=== PATIENT | male | born 1945 | race Hispanic/Latino ===

== ENCOUNTER → 2020-05-02 | Day surgery (SDC) | payer OTHER ==
[2020-04-29 10:24] LABS: BASOPHILS # (AUTO) 0.1 (0.0-0.1); BASOPHILS % 0.5 % (0.0-1.0); EOSINOPHILS # (AUTO) 0.1 (0.0-0.4); EOSINOPHILS % 1.2 % (0.0-6.0); HEMATOCRIT 42.6 % (38.2-49.6); HEMOGLOBIN 14.4 g/dL (14.0-18.0); LYMPHOCYTES % 19.5 % (18.0-39.1); MEAN CORPUSCULAR HEMOGLOBIN 30.1 pg (28-32); MEAN CORPUSCULAR HGB CONC 33.8 g/dL (31-35); MEAN CORPUSCULAR VOLUME 89.1 fL (81-99); MONOCYTES # (AUTO) 0.9 (0.2-0.8); MONOCYTES % 9.1 % (4.4-11.3); NEUTROPHILS # (AUTO) 7.1 (2.1-6.9); NEUTROPHILS % 68.8 % (38.7-80.0); PLATELET COUNT 230 x10e3/uL (140-360); RED BLOOD COUNT 4.78 x10e6/uL (4.3-5.7); RED CELL DISTRIBUTION WIDTH 13.8 % (11.7-14.4)
[2020-04-29 10:49] LABS: ANION GAP 12.9 mmol/L (8-16); BLOOD UREA NITROGEN 21 mg/dL (7-26); BUN/CREATININE RATIO 23 (6-25); CALCIUM 9.3 mg/dL (8.4-10.2); CARBON DIOXIDE 24 mmol/L (22-29); CHLORIDE 104 mmol/L (98-107); CREATININE, SERUM 0.93 mg/dL (0.72-1.25); EST GLOMERULAR FILTRATION RATE > 60 ML/MIN (60-); GLUCOSE 99 mg/dL (74-118); POTASSIUM 3.9 mmol/L (3.5-5.1); SODIUM 137 mmol/L (136-145)
[~2020-05-02] MED LIST: BALANCED SALT SOLN (OPTH) 15 ML BTL IO ONE; BUPIVACAINE HC 0.75% PF 10ML VIAL INJ ONE; CYCLOPENTOLATE HCL 2% OPTH SOLN 2 ML BTL OP ONE; EPINEPHRINE HCL 1:1000 1ML 1 MG/ML AMP ONE; FENTANYL CITRATE/PF 100MCG/2 ML INJ ONE; GATIFLOXACIN(OPTH) 5 ML LIQD ONE; LATANOPROST2.5 ML OU; LIDOCAINE 2% /EPINEPHRINE 20 ML SDV INJ ONE; LIDOCAINE HCL-PF 4% 40 MG/1 ML 5ML AMP ONE; LOSARTAN POTASS25 MG PO; METFORMIN HCL500 MG PO; MIDAZOLAM HCL 2 MG/2 ML VIAL ONE; PHENYLEPHRINE HCL 2 ML DROPS ONE; PILOCARPINE HCL(OPTH) 15 ML LIQD ONE; POVIDONE IODINE 5% (OPTH) 30 ML BTL ONE; TIMOLOL OU; TOBRAMYCIN/DEXAMETHASONE(OPTH) 3.5 GM TUBE ONE
[2020-05-02 08:25] VITALS: BP 152/90
== END | disposition home or self-care (01) ==
LOC: OR 05:23
PROVIDERS: ATTEND Ophthalmology
DX: H25.12 Age-related nuclear cataract, left eye (principal); E11.9 Type 2 diabetes mellitus without complications; I10 Essential (primary) hypertension; F17.210 Nicotine dependence, cigarettes, uncomplicated; Z01.810 Encounter for preprocedural cardiovascular examination; Z01.812 Encounter for preprocedural laboratory examination; Z20.822 Contact with and (suspected) exposure to COVID-19; Z79.84 Long term (current) use of oral hypoglycemic drugs
CPT/HCPCS: 36415; 80048; 82948; 85025; 93005; J0171; J2001; J2250; J3010; U0002; V2787

== ENCOUNTER 2021-06-11 14:59 | Inpatient (IN) | payer OTHER ==
[~2021-06-11] VITALS: Ht 180.3 cm; Wt 108.0 kg
[~2021-06-11 14:59] MED LIST changes: -BALANCED SALT SOLN (OPTH) 15 ML BTL IO ONE; -BUPIVACAINE HC 0.75% PF 10ML VIAL INJ ONE; -CYCLOPENTOLATE HCL 2% OPTH SOLN 2 ML BTL OP ONE; -EPINEPHRINE HCL 1:1000 1ML 1 MG/ML AMP ONE; -FENTANYL CITRATE/PF 100MCG/2 ML INJ ONE; -GATIFLOXACIN(OPTH) 5 ML LIQD ONE; -LIDOCAINE 2% /EPINEPHRINE 20 ML SDV INJ ONE; -LIDOCAINE HCL-PF 4% 40 MG/1 ML 5ML AMP ONE; -MIDAZOLAM HCL 2 MG/2 ML VIAL ONE; -PHENYLEPHRINE HCL 2 ML DROPS ONE; -PILOCARPINE HCL(OPTH) 15 ML LIQD ONE; -POVIDONE IODINE 5% (OPTH) 30 ML BTL ONE; -TOBRAMYCIN/DEXAMETHASONE(OPTH) 3.5 GM TUBE ONE
[2021-06-11] MEDS ORDERED: SODIUM CHLORIDE 0.9% 1000ML 1,000 ML IV STA (15:18)
[2021-06-11 15:30] LABS: BASOPHILS % 0.3 % (0.0-1.0); HEMATOCRIT 40.4 % (38.2-49.6); HEMOGLOBIN 13.7 g/dL (14.0-18.0); LYMPHOCYTES # (AUTO) 0.7 (1.0-3.2); LYMPHOCYTES % 9.5 % (18.0-39.1); MEAN CORPUSCULAR HGB CONC 33.9 g/dL (31-35); MEAN CORPUSCULAR VOLUME 88.4 fL (81-99); MONOCYTES # (AUTO) 0.3 (0.2-0.8); MONOCYTES % 3.4 % (4.4-11.3); NEUTROPHILS # (AUTO) 6.5 (2.1-6.9); NEUTROPHILS % 85.5 % (38.7-80.0); PLATELET COUNT 139 x10e3/uL (140-360); RED BLOOD COUNT 4.57 x10e6/uL (4.3-5.7); RED CELL DISTRIBUTION WIDTH 14.2 % (11.7-14.4)
[2021-06-11] MEDS ORDERED: ACETAMINOPHEN 325 MG TAB PO ONE (15:30)
[2021-06-11 15:33] LABS: INR 1.1; PROTHROMBIN TIME 15.2 seconds (11.9-14.5)
[2021-06-11 15:34] LABS: PARTIAL THROMBOPLASTIN TIME 37.4 seconds (23.8-35.5)
[2021-06-11 15:41] LABS: ALBUMIN 3.3 g/dL (3.5-5.0); ALBUMIN/GLOBULIN RATIO 0.8 (0.8-2.0); ANION GAP 15.6 mmol/L (8-16); CALCIUM 8.7 mg/dL (8.4-10.2); CREATININE, SERUM 1.56 mg/dL (0.72-1.25); MAGNESIUM 1.7 MG/DL (1.3-2.1); POTASSIUM 3.6 mmol/L (3.5-5.1)
[2021-06-11 15:58] LABS: B-TYPE NATRIURETIC PEPTIDE2 73.7 pg/mL (0-100)
[2021-06-11 16:00] LABS: CREATINE KINASE MB 3.4 ng/mL (0-5.0); THYROID STIMULATING HORMONE 3.806 uIU/mL (0.350-4.940)
[2021-06-11] MEDS: IPRATROPIUM BROMIDE 0.02% 2.5 ML NEB NEB SCH ×2 (17:00→21:00)
[2021-06-11] MEDS: ALBUTEROL SULF 0.083% NEB SOLN 3 ML NEB NEB SCH ×3 (17:00→23:45)
[2021-06-11 17:06] LABS: LYMPHOCYTES % (MANUAL) 2 % (19-48); MONOCYTES % (MANUAL) 15 % (3.4-9.0); NEUTROPHILS % (MANUAL) 79 % (40-74); PLATELET ESTIMATE SLIGHTLY DECREASED; PLATELET MORPHOLOGY COMMENT FEW LARGE; RBC MORPHOLOGY COMMENT NORMAL
[2021-06-11] MEDS ORDERED: DEXTROSE 50% SYRINGE 50 ML IV PRN (17:15)
[2021-06-11 17:22] LABS: CLARITY,URINE SL CLOUDY (CLEAR); COLOR,URINE STRAW (YELLOW); KETONES,URINE 1+ (NEGATIVE); LEUKOCYTE ESTERASE ,URINE NEGATIVE (NEGATIVE); NITRITE,URINE NEGATIVE (NEGATIVE); PROTEIN,URINE DIPSTICK 2+ (NEGATIVE); URINE UROBILINOGEN 1 mg/dL (0.2 - 1)
[2021-06-11 17:23] LABS: AMPHETAMINES SCREEN,URINE NEGATIVE (NEGATIVE); PHENCYCLIDINE SCREEN,URINE NEGATIVE (NEGATIVE)
[2021-06-11 17:24] LABS: BENZODIAZEPINES SCREEN,URINE NEGATIVE (NEGATIVE)
[2021-06-11 17:34] LABS: AMORPHOUS SEDIMENT,URINE FEW (FEW); BACTERIA,URINE MODERATE /HPF; EPITHELIAL CELLS,URINE RARE /LPF; RBC,URINE 0-5 /HPF (0-5); WBC,URINE (MAN) 0-5 /HPF (0-5)
[2021-06-11] MEDS: SODIUM CHLORIDE 0.9% 1000ML 1,000 ML IV SCH (17:44)
[2021-06-11 19:45] VITALS: BP 172/76
[2021-06-11] MEDS ORDERED: ONDANSETRON HCL INJ 2MG/ML 2ML 2 MG/ML VIAL IV PRN (20:45)
[2021-06-11] MEDS: LOSARTAN POTASSIUM 25 MG TAB PO SCH (20:55)
[2021-06-11] MEDS: ACETAMINOPHEN 325 MG TAB PO PRN (20:55)
[2021-06-11] MEDS ORDERED: INSULIN LISPRO 100 UNIT/1 ML 3ML VIAL SQ SCH (21:00)
[2021-06-12] VITALS (8 sets, daily range): BP systolic 113–155; BP diastolic 57–90
[2021-06-12] MEDS: ALBUTEROL SULF 0.083% NEB SOLN 3 ML NEB NEB SCH ×2 (03:50→07:08)
[2021-06-12] MEDS: IPRATROPIUM BROMIDE 0.02% 2.5 ML NEB NEB SCH ×2 (03:50→07:08)
[2021-06-12] MEDS: SODIUM CHLORIDE 0.9% 1000ML 1,000 ML IV SCH (05:42)
[2021-06-12 06:10] LABS: BASOPHILS # (AUTO) 0.1 (0.0-0.1); BASOPHILS % 0.6 % (0.0-1.0); HEMATOCRIT 36.5 % (38.2-49.6); HEMOGLOBIN 12.2 g/dL (14.0-18.0); LYMPHOCYTES # (AUTO) 0.9 (1.0-3.2); MEAN CORPUSCULAR HEMOGLOBIN 29.8 pg (28-32); MEAN CORPUSCULAR HGB CONC 33.4 g/dL (31-35); MEAN CORPUSCULAR VOLUME 89.2 fL (81-99); MONOCYTES # (AUTO) 0.3 (0.2-0.8); MONOCYTES % 3.6 % (4.4-11.3); NEUTROPHILS # (AUTO) 6.4 (2.1-6.9); NEUTROPHILS % 82.5 % (38.7-80.0); PLATELET COUNT 121 x10e3/uL (140-360); RED BLOOD COUNT 4.09 x10e6/uL (4.3-5.7); RED CELL DISTRIBUTION WIDTH 14.3 % (11.7-14.4)
[2021-06-12 06:46] LABS: ALBUMIN 2.6 g/dL (3.5-5.0); ALBUMIN/GLOBULIN RATIO 0.7 (0.8-2.0); ANION GAP 13.6 mmol/L (8-16); CALCIUM 7.7 mg/dL (8.4-10.2); CREATININE, SERUM 1.21 mg/dL (0.72-1.25); POTASSIUM 3.6 mmol/L (3.5-5.1)
[2021-06-12 07:03] LABS: CREATINE KINASE MB 2.4 ng/mL (0-5.0)
[2021-06-12] MEDS: LOSARTAN POTASSIUM 25 MG TAB PO SCH ×2 (08:51→17:39)
[2021-06-12] MEDS: ACETAMINOPHEN 325 MG TAB PO PRN (08:53)
[2021-06-12] MEDS ORDERED: ALBUTEROL/IPRATROPIUM 3 ML NEB NEB PRN (09:45)
[2021-06-12] MEDS ORDERED: ONDANSETRON HCL INJ 2MG/ML 2ML 2 MG/ML VIAL IV PRN (09:45)
[2021-06-12] MEDS ORDERED: DEXTROSE 50% SYRINGE 50 ML IV PRN (09:45)
[2021-06-12] MEDS ORDERED: HYDRALAZINE HCL 20 MG/ML VIAL IV PRN (09:45)
[2021-06-12 10:06] LABS: BAND NEUTROPHILS % (MANUAL) 11 %; LYMPHOCYTES % (MANUAL) 10 % (19-48); MONOCYTES % (MANUAL) 1 % (3.4-9.0); NEUTROPHILS % (MANUAL) 77 % (40-74); PLATELET ESTIMATE SLIGHTLY DECREASED
[2021-06-12 10:07] LABS: PLATELET MORPHOLOGY COMMENT FEW LARGE; RBC MORPHOLOGY COMMENT NORMAL
[2021-06-12] MEDS ORDERED: NIFEDIPINE CR 30 MG TAB PO ONE (10:15)
[2021-06-12] MEDS: METOPROLOL TARTRATE 50 MG TAB PO SCH ×2 (10:15→17:40)
[2021-06-12] MEDS: ALPRAZOLAM 0.25 MG TAB PO PRN ×2 (10:32→21:17)
[2021-06-12] MEDS: INSULIN LISPRO 100 UNIT/1 ML 3ML VIAL SQ SCH ×3 (12:30→21:00)
[2021-06-12] MEDS: ENOXAPARIN INJ 80 MG/0.8 ML SYR SC SCH ×2 (12:30→21:16)
[2021-06-12] MEDS: ALBUTEROL/IPRATROPIUM 3 ML NEB NEB SCH ×2 (13:00→19:28)
[2021-06-12] MEDS ORDERED: IOPAMIDOL 300MG/ML 100 ML INFUS..BTL IV ONE (13:31)
[2021-06-12] MEDS ORDERED: IOPAMIDOL 370 MG/ML 100 ML INFUS..BTL INJ ONE (13:32)
[2021-06-12 15:44] LABS: CREATINE KINASE MB 4.2 ng/mL (0-5.0)
[2021-06-12] MEDS: METOPROLOL TARTRATE INJ 1 MG/ML VIAL IV PRN (20:46)
[2021-06-13] VITALS (7 sets, daily range): BP systolic 104–142; BP diastolic 62–90
[2021-06-13] MEDS: ALBUTEROL/IPRATROPIUM 3 ML NEB NEB SCH ×4 (00:32→19:00)
[2021-06-13 05:06] LABS: BASOPHILS % 0.4 % (0.0-1.0); EOSINOPHILS % 0.1 % (0.0-6.0); HEMATOCRIT 38.7 % (38.2-49.6); HEMOGLOBIN 12.9 g/dL (14.0-18.0); LYMPHOCYTES % 19.2 % (18.0-39.1); MEAN CORPUSCULAR HEMOGLOBIN 30.1 pg (28-32); MEAN CORPUSCULAR HGB CONC 33.3 g/dL (31-35); MEAN CORPUSCULAR VOLUME 90.2 fL (81-99); MONOCYTES # (AUTO) 0.5 (0.2-0.8); MONOCYTES % 4.7 % (4.4-11.3); NEUTROPHILS # (AUTO) 7.7 (2.1-6.9); NEUTROPHILS % 74.6 % (38.7-80.0); PLATELET COUNT 111 x10e3/uL (140-360); RED BLOOD COUNT 4.29 x10e6/uL (4.3-5.7); RED CELL DISTRIBUTION WIDTH 14.5 % (11.7-14.4)
[2021-06-13 05:34] LABS: ANION GAP 13.8 mmol/L (8-16); CALCIUM 7.8 mg/dL (8.4-10.2); CREATININE, SERUM 1.04 mg/dL (0.72-1.25); MAGNESIUM 1.9 MG/DL (1.3-2.1); PHOSPHORUS 1.6 MG/DL (2.3-4.7); POTASSIUM 3.8 mmol/L (3.5-5.1)
[2021-06-13] MEDS: METOPROLOL TARTRATE INJ 1 MG/ML VIAL IV PRN (05:40)
[2021-06-13 05:54] LABS: THYROID STIMULATING HORMONE 3.592 uIU/mL (0.350-4.940)
[2021-06-13] MEDS: ALPRAZOLAM 0.25 MG TAB PO PRN (07:28)
[2021-06-13] MEDS: INSULIN LISPRO 100 UNIT/1 ML 3ML VIAL SQ SCH ×4 (07:30→21:00)
[2021-06-13 08:28] LABS: BAND NEUTROPHILS % (MANUAL) 3 %; LYMPHOCYTES % (MANUAL) 10 % (19-48); MONOCYTES % (MANUAL) 3 % (3.4-9.0); NEUTROPHILS % (MANUAL) 84 % (40-74)
[2021-06-13 08:29] LABS: PLATELET ESTIMATE SLIGHTLY DECREASED; PLATELET MORPHOLOGY COMMENT FEW GIANT; RBC MORPHOLOGY COMMENT NORMAL
[2021-06-13] MEDS ORDERED: NIFEDIPINE CR 30 MG TAB PO SCH (09:00)
[2021-06-13] MEDS: LOSARTAN POTASSIUM 25 MG TAB PO SCH ×2 (10:06→16:10)
[2021-06-13] MEDS: ENOXAPARIN INJ 80 MG/0.8 ML SYR SC SCH ×2 (10:14→21:00)
[2021-06-13] MEDS: METOPROLOL TARTRATE 50 MG TAB PO SCH ×3 (10:15→21:05)
[2021-06-13] MEDS ORDERED: DILTIAZEM HCL 60 MG TAB PO ONE (10:30)
[2021-06-13] MEDS ORDERED: FUROSEMIDE INJ 10 MG/ML 2 ML VIAL IV ONE (13:00)
[2021-06-13] MEDS: ACETAMINOPHEN 325 MG TAB PO PRN ×2 (13:00→18:46)
[2021-06-13 13:15] LABS: ABG PCO2 26 mmHg (35-45); ABG PH 7.46 (7.35-7.45); ABG PO2 58 mmHg (80-105)
[2021-06-13 13:16] LABS: ABG HCO3 19 mmol/L (22-26); ABG TCO2 19
[2021-06-13 14:35] LABS: ALBUMIN 2.5 g/dL (3.5-5.0); BILIRUBIN,DIRECT 0.5 mg/dL (0.0-0.5)
[2021-06-13 15:01] LABS: FREE THYROXINE INDEX 1.6672 (1.4-3.8); THYROID STIMULATING HORMONE 4.577 uIU/mL (0.350-4.940)
[2021-06-13] MEDS: DILTIAZEM HCL 60 MG TAB PO SCH (16:48)
[2021-06-13] MEDS: BUDESONIDE 0.25 MG/2 ML NEB NEB SCH (19:00)
[2021-06-14] VITALS (7 sets, daily range): BP systolic 80–126; BP diastolic 57–81
[2021-06-14] MEDS: ALBUTEROL/IPRATROPIUM 3 ML NEB NEB SCH ×4 (00:27→19:00)
[2021-06-14] MEDS: METOPROLOL TARTRATE 50 MG TAB PO SCH ×4 (06:00→18:00)
[2021-06-14] MEDS: BUDESONIDE 0.25 MG/2 ML NEB NEB SCH ×2 (07:00→19:00)
[2021-06-14] MEDS: INSULIN LISPRO 100 UNIT/1 ML 3ML VIAL SQ SCH ×4 (07:30→20:04)
[2021-06-14] MEDS: DILTIAZEM HCL 60 MG TAB PO SCH ×2 (08:44→16:30)
[2021-06-14] MEDS: ENOXAPARIN INJ 80 MG/0.8 ML SYR SC SCH ×2 (08:44→20:04)
[2021-06-14] MEDS: LOSARTAN POTASSIUM 25 MG TAB PO SCH ×2 (08:44→17:00)
[2021-06-14] MEDS: HYDROCODONE/APAP 5MG-325MG TAB PO PRN ×2 (17:17→22:01)
[2021-06-14] MEDS: ACETAMINOPHEN 325 MG TAB PO PRN (20:06)
[2021-06-15] VITALS (8 sets, daily range): BP systolic 92–140; BP diastolic 47–68
[2021-06-15] MEDS: ALBUTEROL/IPRATROPIUM 3 ML NEB NEB SCH ×4 (01:00→19:00)
[2021-06-15] MEDS: METOPROLOL TARTRATE 50 MG TAB PO SCH ×4 (04:44→18:00)
[2021-06-15] MEDS: BUDESONIDE 0.25 MG/2 ML NEB NEB SCH ×2 (06:15→19:00)
[2021-06-15 06:49] LABS: BASOPHILS # (AUTO) 0.1 (0.0-0.1); BASOPHILS % 0.5 % (0.0-1.0); EOSINOPHILS # (AUTO) 0.1 (0.0-0.4); EOSINOPHILS % 0.8 % (0.0-6.0); HEMOGLOBIN 12.6 g/dL (14.0-18.0); LYMPHOCYTES # (AUTO) 1.7 (1.0-3.2); LYMPHOCYTES % 13.2 % (18.0-39.1); MEAN CORPUSCULAR HEMOGLOBIN 29.7 pg (28-32); MEAN CORPUSCULAR HGB CONC 33.2 g/dL (31-35); MEAN CORPUSCULAR VOLUME 89.6 fL (81-99); MONOCYTES # (AUTO) 0.7 (0.2-0.8); MONOCYTES % 5.3 % (4.4-11.3); NEUTROPHILS # (AUTO) 10.1 (2.1-6.9); NEUTROPHILS % 77.1 % (38.7-80.0); PLATELET COUNT 181 x10e3/uL (140-360); RED BLOOD COUNT 4.24 x10e6/uL (4.3-5.7); RED CELL DISTRIBUTION WIDTH 14.4 % (11.7-14.4)
[2021-06-15 07:10] LABS: ALBUMIN 2.3 g/dL (3.5-5.0); ALBUMIN/GLOBULIN RATIO 0.6 (0.8-2.0); ANION GAP 11.3 mmol/L (8-16); CREATININE, SERUM 1.1 mg/dL (0.72-1.25); POTASSIUM 3.3 mmol/L (3.5-5.1)
[2021-06-15] MEDS: INSULIN LISPRO 100 UNIT/1 ML 3ML VIAL SQ SCH ×4 (07:30→20:13)
[2021-06-15] MEDS: DILTIAZEM HCL 60 MG TAB PO SCH ×2 (07:30→16:30)
[2021-06-15] MEDS: ACETAMINOPHEN 325 MG TAB PO PRN (08:12)
[2021-06-15] MEDS: ENOXAPARIN INJ 80 MG/0.8 ML SYR SC SCH ×2 (09:00→20:13)
[2021-06-15] MEDS: LOSARTAN POTASSIUM 25 MG TAB PO SCH ×2 (09:00→16:44)
[2021-06-15] MEDS ORDERED: FUROSEMIDE INJ 10 MG/ML 2 ML VIAL IV ONE (14:30)
[2021-06-15] MEDS: HYDROCODONE/APAP 5MG-325MG TAB PO PRN (20:10)
[2021-06-16] VITALS (7 sets, daily range): BP systolic 113–127; BP diastolic 71–89
[2021-06-16] MEDS: HYDROCODONE/APAP 5MG-325MG TAB PO PRN ×3 (00:49→17:53)
[2021-06-16] MEDS: METOPROLOL TARTRATE 50 MG TAB PO SCH ×4 (05:43→17:53)
[2021-06-16] MEDS: ACETAMINOPHEN 325 MG TAB PO PRN (05:53)
[2021-06-16] MEDS: ALBUTEROL/IPRATROPIUM 3 ML NEB NEB SCH ×4 (07:00→19:00)
[2021-06-16] MEDS: BUDESONIDE 0.25 MG/2 ML NEB NEB SCH ×2 (07:00→19:00)
[2021-06-16] MEDS: INSULIN LISPRO 100 UNIT/1 ML 3ML VIAL SQ SCH ×4 (07:30→20:50)
[2021-06-16] MEDS: DILTIAZEM HCL 60 MG TAB PO SCH ×2 (08:46→17:52)
[2021-06-16] MEDS: ENOXAPARIN INJ 80 MG/0.8 ML SYR SC SCH ×2 (08:47→20:49)
[2021-06-16] MEDS: LOSARTAN POTASSIUM 25 MG TAB PO SCH ×2 (08:47→17:53)
[2021-06-16] MEDS ORDERED: POTASSIUM CHLORIDE 10MEQ EA PO ONE (10:00)
[2021-06-17] VITALS (7 sets, daily range): BP systolic 93–131; BP diastolic 62–75
[2021-06-17] MEDS: METOPROLOL TARTRATE 50 MG TAB PO SCH ×4 (00:05→17:52)
[2021-06-17] MEDS: ACETAMINOPHEN 325 MG TAB PO PRN (00:06)
[2021-06-17] MEDS: ALBUTEROL/IPRATROPIUM 3 ML NEB NEB SCH ×2 (01:00→07:00)
[2021-06-17 06:15] LABS: BASOPHILS # (AUTO) 0.1 (0.0-0.1); BASOPHILS % 0.5 % (0.0-1.0); EOSINOPHILS # (AUTO) 0.2 (0.0-0.4); EOSINOPHILS % 1.1 % (0.0-6.0); HEMATOCRIT 33.8 % (38.2-49.6); HEMOGLOBIN 11.3 g/dL (14.0-18.0); LYMPHOCYTES # (AUTO) 2.4 (1.0-3.2); MEAN CORPUSCULAR HEMOGLOBIN 30.1 pg (28-32); MEAN CORPUSCULAR HGB CONC 33.4 g/dL (31-35); MEAN CORPUSCULAR VOLUME 90.1 fL (81-99); MONOCYTES # (AUTO) 0.7 (0.2-0.8); NEUTROPHILS # (AUTO) 9.4 (2.1-6.9); NEUTROPHILS % 70.1 % (38.7-80.0); PLATELET COUNT 289 x10e3/uL (140-360); RED BLOOD COUNT 3.75 x10e6/uL (4.3-5.7); RED CELL DISTRIBUTION WIDTH 14.4 % (11.7-14.4)
[2021-06-17 06:41] LABS: ANION GAP 8.5 mmol/L (8-16); CALCIUM 7.6 mg/dL (8.4-10.2); CREATININE, SERUM 1.15 mg/dL (0.72-1.25); POTASSIUM 3.5 mmol/L (3.5-5.1)
[2021-06-17] MEDS: BUDESONIDE 0.25 MG/2 ML NEB NEB SCH ×2 (07:00→19:00)
[2021-06-17 07:01] LABS: MAGNESIUM 1.8 MG/DL (1.3-2.1)
[2021-06-17] MEDS: DILTIAZEM HCL 60 MG TAB PO SCH ×2 (07:30→16:30)
[2021-06-17] MEDS: INSULIN LISPRO 100 UNIT/1 ML 3ML VIAL SQ SCH ×4 (07:30→21:00)
[2021-06-17] MEDS: LOSARTAN POTASSIUM 25 MG TAB PO SCH ×2 (08:39→17:00)
[2021-06-17] MEDS: ENOXAPARIN INJ 80 MG/0.8 ML SYR SC SCH ×2 (08:39→21:00)
[2021-06-17 09:48] LABS: PHOSPHORUS 2.8 MG/DL (2.3-4.7)
[2021-06-17] MEDS: FUROSEMIDE INJ 10 MG/ML 4 ML VIAL IV SCH ×2 (10:00→15:10)
[2021-06-17 10:59] LABS: LYMPHOCYTES % (MANUAL) 15 % (19-48); MONOCYTES % (MANUAL) 7 % (3.4-9.0); NEUTROPHILS % (MANUAL) 78 % (40-74)
[2021-06-17 11:01] LABS: PLATELET ESTIMATE ADEQUATE; PLATELET MORPHOLOGY COMMENT FEW LARGE; RBC MORPHOLOGY COMMENT NORMAL
[2021-06-17] MEDS: POTASSIUM CHLORIDE 10MEQ EA PO SCH ×2 (15:12→17:51)
[2021-06-17] MEDS: ALBUTEROL SULFATE HFA 8GM INHALATION AEROSOL INH SCH (19:00)
[2021-06-18] VITALS (10 sets, daily range): BP systolic 100–148; BP diastolic 52–95
[2021-06-18] MEDS: METOPROLOL TARTRATE 50 MG TAB PO SCH ×4 (06:00→17:26)
[2021-06-18] MEDS: ALBUTEROL SULFATE HFA 8GM INHALATION AEROSOL INH SCH ×4 (07:00→19:00)
[2021-06-18] MEDS: BUDESONIDE 0.25 MG/2 ML NEB NEB SCH ×2 (07:00→19:00)
[2021-06-18] MEDS: POTASSIUM CHLORIDE 10MEQ EA PO SCH ×2 (09:42→17:28)
[2021-06-18] MEDS: LOSARTAN POTASSIUM 25 MG TAB PO SCH ×2 (09:42→17:25)
[2021-06-18] MEDS: ENOXAPARIN INJ 80 MG/0.8 ML SYR SC SCH ×2 (09:42→21:00)
[2021-06-18] MEDS: FUROSEMIDE INJ 10 MG/ML 4 ML VIAL IV SCH ×3 (09:43→17:31)
[2021-06-18] MEDS: INSULIN LISPRO 100 UNIT/1 ML 3ML VIAL SQ SCH ×4 (09:44→21:00)
[2021-06-18] MEDS: PANTOPRAZOLE SOD 40 MG TABEC PO SCH (09:45)
[2021-06-18] MEDS: DILTIAZEM HCL 60 MG TAB PO SCH ×2 (09:46→17:28)
[2021-06-19] MEDS: METOPROLOL TARTRATE 50 MG TAB PO SCH ×5 (01:00→18:42)
[2021-06-19 04:42] VITALS: BP 123/102
[2021-06-19] MEDS: ALBUTEROL SULFATE HFA 8GM INHALATION AEROSOL INH SCH ×3 (07:00→15:00)
[2021-06-19] MEDS: BUDESONIDE 0.25 MG/2 ML NEB NEB SCH (07:00)
[2021-06-19 08:27] VITALS: BP 128/67
[2021-06-19] MEDS: DILTIAZEM HCL 60 MG TAB PO SCH (08:30)
[2021-06-19] MEDS: PANTOPRAZOLE SOD 40 MG TABEC PO SCH (08:30)
[2021-06-19 09:00] VITALS: BP 128/67
[2021-06-19] MEDS: FUROSEMIDE INJ 10 MG/ML 4 ML VIAL IV SCH (09:00)
[2021-06-19] MEDS ORDERED: AZITHROMYCIN 250 MG TAB PO SCH (09:00)
[2021-06-19] MEDS: ENOXAPARIN INJ 80 MG/0.8 ML SYR SC SCH (09:16)
[2021-06-19] MEDS: LOSARTAN POTASSIUM 25 MG TAB PO SCH ×2 (09:17→18:42)
[2021-06-19] MEDS: POTASSIUM CHLORIDE 10MEQ EA PO SCH ×2 (10:00→18:42)
[2021-06-19] MEDS: INSULIN LISPRO 100 UNIT/1 ML 3ML VIAL SQ SCH ×3 (11:03→16:30)
[2021-06-19 11:26] VITALS: BP 108/66
[2021-06-19] MEDS ORDERED: ONDANSETRON HCL 4 MG ORAL DISINTEGRATING TAB PO PRN (11:45)
[2021-06-19] MEDS ORDERED: DOXYCYCLINE MO (14:49)
[2021-06-19] MEDS ORDERED: DOXYCYCLINE MO100 MG PO (14:53)
[2021-06-19] MEDS ORDERED: COMBIVENT RESPIM4 GM IH (14:57)
[2021-06-19] MEDS ORDERED: ELIQUIS5 MG PO (14:58)
[2021-06-19] MEDS ORDERED: LASIX40 MG PO (14:59)
[2021-06-19] MEDS ORDERED: KLOR-CON M2020 MEQ PO (15:00)
[2021-06-19] MEDS ORDERED: OMEPRAZOLE40 MG PO (15:02)
[2021-06-19] MEDS ORDERED: LOPRESSOR25 MG PO (15:06)
[2021-06-19] MEDS ORDERED: [UNRECOGNIZED DRUG - OTHER] (15:09)
[2021-06-19] MEDS ORDERED: BENZONATATE100 MG PO (15:20)
[2021-06-19] MEDS ORDERED: FUROSEMIDE 40 MG TAB PO SCH (16:00)
[2021-06-19] MEDS ORDERED: DILTIAZEM HCL 60 MG TAB PO SCH (16:30)
[2021-06-19 17:10] VITALS: BP 117/88
== END 2021-06-19 20:15 | disposition home health service (06) | DRG 871 ==
LOC: ER 15:05 → ERHOLD 17:07 → MED/SURG2 20:11
PROVIDERS: ADMIT Internal Medicine; ATTEND Internal Medicine
PROC: 3E03329 Introduction of Other Anti-infective into Peripheral Vein, Percutaneous Approach (ICD-10-PCS; principal; 2021-06-11)
PROC: 5A0935A Assistance with Respiratory Ventilation, Less than 24 Consecutive Hours, High Flow/Velocity Cannula (ICD-10-PCS; 2021-06-13)
DX: A41.9 Sepsis, unspecified organism (principal); J18.9 Pneumonia, unspecified organism; I50.43 Acute on chronic combined systolic (congestive) and diastolic (congestive) heart failure; G92.8 Other toxic encephalopathy; J44.0 Chronic obstructive pulmonary disease with (acute) lower respiratory infection; J44.1 Chronic obstructive pulmonary disease with (acute) exacerbation; N39.0 Urinary tract infection, site not specified; E87.2 Acidosis; N17.9 Acute kidney failure, unspecified; I48.19 Other persistent atrial fibrillation; E87.1 Hypo-osmolality and hyponatremia; R65.20 Severe sepsis without septic shock; F17.210 Nicotine dependence, cigarettes, uncomplicated; E11.9 Type 2 diabetes mellitus without complications; E78.5 Hyperlipidemia, unspecified; E86.0 Dehydration; E66.9 Obesity, unspecified; Z68.33 Body mass index [BMI] 33.0-33.9, adult; Z80.9 Family history of malignant neoplasm, unspecified; Z81.1 Family history of alcohol abuse and dependence; R09.02 Hypoxemia; I11.0 Hypertensive heart disease with heart failure; Z20.822 Contact with and (suspected) exposure to COVID-19; N28.9 Disorder of kidney and ureter, unspecified; K40.90 Unilateral inguinal hernia, without obstruction or gangrene, not specified as recurrent; R06.89 Other abnormalities of breathing
CPT/HCPCS: 36415; 36600; 70450; 71045; 71046; 71250; 74176; 76770; 80048; 80053; 80076; 80307; 81001; 82140; 82550; 82553; 82805; 82948; 83036; 83605; 83735; 83880; 84100; 84436; 84443; 84479; 84484; 85025; 85610; 85651; 85730; 86039; 86141; 86631; 86738; 87040; 87070; 87086; 87205; 87449; 93005; 93306; 93970; 94640; 94760; 94799; 97139; 99251; 99284; J0456; J0696; J1650; J1940; J2405; J7030; J7050; Q9967; U0002